=== PATIENT | female | born 1970 | race African-American/Black ===

== ENCOUNTER → 2016-08-04 | Outpatient (CLI) | payer OTHER ==
--- NOTE | 2016-08-04 10:50 | RAD ---
Examination: Ultrasound abdomen complete History: History of right upper quadrant pain for one month Comparison: None available Findings: The pancreas is poorly visualized due to bowel gas. The visualized aorta, IVC appear patent. The gallbladder is not identified likely prior cholecystectomy. The right lobe of the liver measures 15.1 cm. The right kidney measures 10.7 x 5.3 x 4.6 cm. The left kidney measures 10.0 x 5.6 x 5.7 cm The spleen is not identified likely prior splenectomy changes. The common bile duct measures 3.4 m in transverse dimension. Impression: 1. Changes of cholecystectomy and splenectomy. 2. Limited examination due to bowel gas. 3. Otherwise, unremarkable visualized exam.
== END | disposition home or self-care (01) ==
LOC: US 08:18
PROVIDERS: ATTEND Family Medicine
DX: R10.11 Right upper quadrant pain (principal); Z90.49 Acquired absence of other specified parts of digestive tract; Z90.81 Acquired absence of spleen
CPT/HCPCS: 76700